=== PATIENT | female | born 1960 | race Caucasian/White ===

== ENCOUNTER 2016-08-19 08:02 | Emergency (ER) | payer OTHER ==
[~2016-08-19] VITALS: Ht 157.5 cm; Wt 86.4 kg
[~2016-08-19 08:02] MED LIST: ACIPHEX20 MG PO; ALEVE220 M2 PO; ALIGN4 MG PO; AMBIEN CR12.5 MG PO; AMBIEN10 M1 PO; AMBIEN10 MG PO; AMBIEN5 MG PO; AMITRIPTYLINE H10 MG PO; AMPICILLIN TRI500 MG PO; APRISO0.375 GM PO; APTIOM200 MG PO; ASPIR 8181 M1 PO; ASPIR 8181 MG PO; ASPIRIN E.C.81 M1 PO; ASPIRIN81 M1 PO; ASPIRIN81 M2 PO; ATARAX,VISTARIL25 MG PO; Ambien PO; BENTYL10 MG PO; BENTYL20 MG PO; BENZTROPINE MESY1 MG PO; BRINTELLIX10 MG PO; BUDEPRION SR150 MG PO; BUPROPION HCL150 M2 PO; BUPROPION XL300 MG PO; BUTALB-APAP-CA1 EACH PO; CARAFATE1 GM PO; CENTRUM COMPLE1 EACH PO; CIPRO500 MG PO; CIPROFLOXACIN500 M1; CLONAZEPAM0.5 M1 PO; CLONAZEPAM0.5 MG PO; COGENTIN1 MG PO; COLACE100 MG PO; DAILY VALUE1 EACH PO; DAILY VITAMIN1 EAC8 PO; DESYREL100 MG PO; DEXILANT60 MG PO; DICYCLOMINE HCL10 MG PO; DICYCLOMINE HCL20 MG PO; EFFEXOR XR150 MG PO; EFFEXOR XR37.5 MG PO; EFFEXOR XR75 MG PO; EFFEXOR37.5 MG; ESSENTIAL DAIL1 EACH PO; FEOSOL325 MG PO; FEROSUL325 MG PO; FIORICET,ESG1 TABLET PO; FLAGYL500 MG PO; FLEXERIL10 MG PO; Flexeril PO; GABAPENTIN300 MG PO; GLIPIZIDE ER2.5 MG PO; GLUCOPHAGE1000 MG PO; GLUCOPHAGE500 MG PO; GLUCOTROL XL2.5 MG PO; HYDROCHLOROTHIA25 MG PO; HYDROXYZINE HCL25 MG PO; HYDROXYZINE PAM25 MG PO; IMDUR30 MG PO; IMITREX100 MG; IMITREX100 MG PO; INVOKANA100 MG PO; IRON325 M1 PO; JANUVIA100 MG; Januvia PO; K-DUR20 MEQ PO; KEPPRA500 MG PO; KEPPRA750 MG PO; KLONOPIN0.5 M1 PO; KLONOPIN1 MG PO; KLOR-CON M1010 MEQ PO; KLOR-CON M2020 MEQ PO; KlonoPIN PO; Klonopin PO; L-LYSINE500 M1; LASIX20 MG PO; LEVOFLOXACIN750 MG PO; LIDOCAINE; LIDOCAINE700 MG TD; LIDODERM 5% P1 PATCH PO; LIDODERM 5% P1 PATCH TD; LISINOPRIL5 MG PO; LO-DOSE ASPIRIN81 M1 PO; LOPRESSOR HC1 TABLE2 PO; LOPRESSOR25 MG PO; LOPRESSOR50 MG PO; LORTAB 5-325 M1 EACH PO; LOW DOSE ASPIRI81 M1 PO; LYSINE,L-LYSIN500 MG PO; LYSINE500 MG PO; Lasix PO; MAXALT10 MG PO; MAXALT5 MG PO; MELOXICAM15 MG PO; MELOXICAM7.5 MG PO; METAXALONE800 MG PO; METFORMIN HCL1000 MG PO; METFORMIN HCL500 MG PO; METOPROLOL; METOPROLOL SUCC25 MG PO; METOPROLOL TART25 MG PO; METRONIDAZOLE500 MG PO; MIRAPEX0.5 MG PO; MIRTAZAPINE45 MG PO; MOBIC15 MG PO; MOBIC7.5 MG PO; MULTI COMPLETE1 EACH PO; NAPROSYN500 MG PO; NAPROXEN500 MG PO; NEOSPORIN ANT70.8 GM TP; NEXIUM20 MG PO; NORCO 5/3251 TABLET PO; Non-Formulary PO; OMEPRAZOLE DR; OMEPRAZOLE20 MG PO; PAROXETINE HCL30 MG PO; PAROXETINE HCL40 MG PO; PAXIL30 MG PO; PAXIL40 MG PO; PEPCID40 MG PO; PERCOCET 5/31 TABLET PO; PHENERGAN-CODE120 ML PO; POTASSIUM CHLO10 ME4 PO; POTASSIUM CHLO20 ME1 PO; PRAMIPEXOLE DI0.5 MG PO; PRILOSEC20 MG PO; PRILOSEC40 MG PO; PRISTIQ100 MG PO; PROAIR HFA8.5 GM IH; PROMETHAZINE HC25 M1 PO; PROTONIX40 MG PO; QUETIAPINE FUM300 MG PO; QUETIAPINE FUM400 MG PO; QUETIAPINE FUMA50 MG PO; RESTORIL15 MG PO; SAPHRIS10 MG SL; SEROPHENE50 MG PO; SEROQUEL XR200 MG PO; SEROQUEL XR300 MG PO; SEROQUEL XR400 MG PO; SEROQUEL100 MG PO; SEROQUEL12.5 MG PO; SEROQUEL200 MG PO; SEROQUEL300 MG PO; SEROQUEL50 MG PO; SEROquel PO; SKELAXIN800 MG PO; SUCRALFATE1 GM PO; SUMATRIPTAN SU100 MG PO; TEGretol PO; TOBRADEX EYE DRO5 ML BOTH EYES; TOPAMAX100 MG PO; TOPAMAX25 MG PO; TOPAMAX50 MG PO; TOPIRAMATE25 MG PO; TRAMADOL HCL50 MG PO; TRICOR145 MG PO; TRICOR48 MG PO; TRILAFON4 MG PO; TRILEPTAL600 MG PO; TYLENOL EXTRA500 MG PO; TYLENOL REGULA325 MG PO; TYLENOL WITH C1 EACH PO; ULTRAM50 MG; ULTRAM50 MG PO; VENLAFAXINE H37.5 M1 PO; VENLAFAXINE HC150 M1 PO; VICTOZA; VICTOZA 2-0.6 MG/0.1 SC; VIMOVO 500-201 EACH; VIMOVO 500-201 EACH PO; VITAMIN B-12 IM; VITAMIN B12-FO1 EACH PO; VITAMIN D32000 UNIT; VITAMIN D32400 UNIT/ MC; VIVELLE-DOT,0.025 MG PO; VOLTAREN 1% GE100 GM TP; Victoza SC; Vitamin B-12 PO; Vitamin D PO; WELLBUTRIN SR150 MG PO; WELLBUTRIN XL150 MG; WELLBUTRIN100 MG PO; WELLBUTRIN75 MG PO; Wellbutrin XL PO; XIFAXAN550 MG PO; ZANTAC150 MG PO; ZESTRIL,PRINIVIL5 MG PO; ZESTRIL5 MG PO; ZOCOR10 MG PO; ZOCOR20 MG PO; ZOFRAN ODT4 MG PO; ZOFRAN4 MG PO; ZOFRAN8 MG PO; ZOLPIDEM TARTRA10 MG PO; Zestril,Prinivil PO; [UNRECOGNIZED DRUG - CODE]; [UNRECOGNIZED DRUG - OTHER]; [UNRECOGNIZED DRUG - OTHER] PO
[2016-08-19 09:40] VITALS: BP 135/79
== END 2016-08-19 09:41 | disposition home or self-care (01) ==
LOC: EME 08:02
DX: S60.222A Contusion of left hand, initial encounter (principal); W22.09XA Striking against other stationary object, initial encounter
CPT/HCPCS: 73130; 99281; 99284

== ENCOUNTER 2016-09-11 23:20 | Emergency (ER) | payer OTHER ==
[~2016-09-11] VITALS: Ht 157.5 cm; Wt 85.0 kg
[2016-09-11 23:54] LABS: MCH 27.6 PG (29.0-34.0); MCHC 33.1 G/DL (30.0-36.0); MCV 83.3 FL (83-99); MEAN PLAT.VOLUME 8.9 uM^3 (9.5-12.4); PLATELET COUNT 394 K/uL (156-360); RBC DIS.WIDTH-CV 14.8 % (11.8-14.6); WHITE BLOOD COUNT 11.7 K/uL (4.1-10.2)
[2016-09-12 00:01] LABS: CHLORIDE 106 mEq/L (99-109); POTASSIUM 3.1 mEq/L (3.7-5.4); SODIUM 142 mEq/L (136-147)
[2016-09-12 00:03] LABS: GLUCOSE 169 mg/dL (70-99)
[2016-09-12 00:05] LABS: ANION GAP 11 MEQ/L (2-14); TOTAL BILIRUBIN 0.3 mg/dL (0.0-1.0)
[2016-09-12 00:07] LABS: ALKALINE PHOSPHATASE 131 IU/L (3-129); GFR ESTIMATE (CALCULATED) 45 mL/min/
[2016-09-12 00:08] LABS: UREA NITROGEN (BUN) 27 mg/dL (9-23)
[2016-09-12 00:08] LABS: ADD MIUA? NO; BILIRUBIN NEGATIVE; BLOOD NEGATIVE; COLOR YELLOW ((YELLOW)); GLUCOSE (STRIP) NEGATIVE; KETONES NEGATIVE; LEUKOCYTES NEGATIVE; NITRITE NEGATIVE; PROTEIN (STRIP) NEGATIVE; SPECIFIC GRAVITY 1.013 (1.000-1.030); UCUL ADDED? NO; UROBILINOGEN 0.2 MG/DL (0.2-1.0)
[2016-09-12 00:11] LABS: LIPASE 24 U/L (1.0-51.0)
[2016-09-12] MEDS ORDERED: PEPCID20 MG PO (02:29)
[2016-09-12 02:43] VITALS: BP 146/84
== END 2016-09-12 02:59 | disposition home or self-care (01) ==
LOC: EME 23:20
DX: R10.84 Generalized abdominal pain (principal); R51 Headache; K58.0 Irritable bowel syndrome with diarrhea; J45.909 Unspecified asthma, uncomplicated; E11.9 Type 2 diabetes mellitus without complications; E78.5 Hyperlipidemia, unspecified; I10 Essential (primary) hypertension; K21.9 Gastro-esophageal reflux disease without esophagitis; R56.9 Unspecified convulsions; Z79.82 Long term (current) use of aspirin; Z79.84 Long term (current) use of oral hypoglycemic drugs
CPT/HCPCS: 80053; 81003; 83690; 85027; 99281; 99285; J0500; J2405; J7030

== ENCOUNTER 2016-09-20 21:44 | Emergency (ER) | payer OTHER ==
[~2016-09-20] VITALS: Ht 157.5 cm; Wt 84.8 kg
[~2016-09-20 21:44] MED LIST changes: +PEPCID20 MG PO
[2016-09-20 22:24] LABS: HEMATOCRIT 35.4 % (36.0-46.0); MCH 27.4 PG (29.0-34.0); MCHC 32.5 G/DL (30.0-36.0); MCV 84.5 FL (83-99); MEAN PLAT.VOLUME 9.2 uM^3 (9.5-12.4); PLATELET COUNT 348 K/uL (156-360); RBC DIS.WIDTH-CV 14.4 % (11.8-14.6); RED BLOOD COUNT 4.19 M/uL (3.80-5.20); WHITE BLOOD COUNT 11.6 K/uL (4.1-10.2)
[2016-09-20 22:34] LABS: CHLORIDE 102 mEq/L (99-109); POTASSIUM 3.4 mEq/L (3.7-5.4); SODIUM 141 mEq/L (136-147)
[2016-09-20 22:35] LABS: GLUCOSE 169 mg/dL (70-99)
[2016-09-20 22:37] LABS: ANION GAP 9 MEQ/L (2-14)
[2016-09-20 22:39] LABS: GFR ESTIMATE (CALCULATED) 41 mL/min/
[2016-09-20 22:40] LABS: UREA NITROGEN (BUN) 32 mg/dL (9-23)
[2016-09-20 23:59] LABS: TROP-I INTERPRETATION NEGATIVE; TROPONIN-I 0.02 ng/mL (0.0-0.30)
[2016-09-21 00:04] LABS: INTER. NORMALIZED RATIO 1.1; PROTHROMBIN TIME 11.7 (9.2-11.2); PTT 28.2 (25-32)
[2016-09-21 00:24] LABS: HDL CHOLESTEROL 54 MG/DL (Desirable>=50); LDL CHOLESTEROL 76 mg/dL (Desirable<100); NON-HDL CHOLESTEROL 116 mg/dL (Desirable<160); TOTAL CHOLESTEROL 170 mg/dL (Desirable<200); TRIGLYCERIDES 200 MG/DL (Normal: <150)
[2016-09-21 01:01] VITALS: BP 115/61
== END 2016-09-21 01:42 | disposition home or self-care (01) ==
LOC: EME 21:44
DX: R47.9 Unspecified speech disturbances (principal); R20.0 Anesthesia of skin; R53.1 Weakness; E86.0 Dehydration; J45.909 Unspecified asthma, uncomplicated; E11.9 Type 2 diabetes mellitus without complications; E78.5 Hyperlipidemia, unspecified; I10 Essential (primary) hypertension; K21.9 Gastro-esophageal reflux disease without esophagitis
CPT/HCPCS: 70450; 71020; 80048; 80061; 84484; 85027; 85610; 85730; 93005; 99281; 99284

== ENCOUNTER 2016-09-30 01:53 | Inpatient (IN) | payer OTHER ==
[~2016-09-30] VITALS: Ht 160 cm; Wt 83.6 kg
[2016-09-30 02:24] LABS: HEMATOCRIT 37.5 % (36.0-46.0); MCH 26.9 PG (29.0-34.0); MCHC 33.3 G/DL (30.0-36.0); MCV 80.8 FL (83-99); PLATELET COUNT 350 K/uL (156-360); RBC DIS.WIDTH-CV 14.2 % (11.8-14.6); RBC DIS.WIDTH-SD 40.8 % (39-53); RED BLOOD COUNT 4.64 M/uL (3.80-5.20); WHITE BLOOD COUNT 10.6 K/uL (4.1-10.2)
[2016-09-30 02:33] LABS: CHLORIDE 102 mEq/L (99-109); POTASSIUM 2.6 mEq/L (3.7-5.4); SODIUM 144 mEq/L (136-147)
[2016-09-30 02:34] LABS: GLUCOSE 124 mg/dL (70-99)
[2016-09-30 02:36] LABS: ANION GAP 14 MEQ/L (2-14)
[2016-09-30 02:37] LABS: SERUM ETHYL ALCOHOL < 10 mg/dL
[2016-09-30 02:38] LABS: GFR ESTIMATE (CALCULATED) 41 mL/min/
[2016-09-30 02:40] LABS: UREA NITROGEN (BUN) 30 mg/dL (9-23)
[2016-09-30 02:41] LABS: SALICYLATE < 5.0 MG/DL (15-30)
[2016-09-30 03:33] LABS: AMPHETAMINE NEGATIVE (500 ng/mL); BARBITURATES NEGATIVE (200 ng/mL); BENZODIAZEPINES NEGATIVE (150 ng/mL); COCAINE NEGATIVE (150 ng/mL); INTERNAL CONTROLS VALID? YES; METHADONE NEGATIVE (200 ng/mL); METHAMPHETAMINE NEGATIVE (500 ng/mL); OPIATES (MORPHINE) NEGATIVE (100 ng/mL); OXYCODONE NEGATIVE (100 ng/mL); PHENCYCLIDINE NEGATIVE (25 ng/mL); PROPOXYPHENE NEGATIVE (300 ng/mL); THC CANNABINOIDS NEGATIVE (50 ng/mL); TRICYCLIC ANTIDEPRESSANTS PRESUMPTIVE POSITIVE (300 ng/mL)
[2016-09-30] MEDS ORDERED: SIMVASTATIN20 MG PO (05:14)
[2016-09-30] MEDS ORDERED: MIRAPEX0.5 MG PO (05:15)
[2016-09-30] MEDS ORDERED: LOPRESSOR50 MG PO (05:15)
[2016-09-30] MEDS ORDERED: AMBIEN10 MG PO (05:15)
[2016-09-30] MEDS ORDERED: KLOR-CON20 MEQ PO (05:16)
[2016-09-30] MEDS ORDERED: IRON325 MG PO (05:16)
[2016-09-30] MEDS ORDERED: GLUCOTROL XL2.5 MG PO (05:16)
[2016-09-30] MEDS ORDERED: GLIPIZIDE10 MG PO (05:21)
[2016-09-30] MEDS ORDERED: TOPAMAX100 MG PO (05:28)
[2016-09-30] MEDS ORDERED: EFFEXOR XR150 MG PO (05:28)
[2016-09-30] MEDS ORDERED: NEURONTIN300 MG PO (05:29)
[2016-09-30] MEDS ORDERED: TOPAMAX25 MG PO (05:29)
[2016-09-30] MEDS ORDERED: SEROQUEL50 MG PO (05:30)
[2016-09-30] MEDS ORDERED: SEROQUEL200 MG PO (05:30)
[2016-09-30] MEDS ORDERED: SEROQUEL XR400 MG PO (05:30)
[2016-09-30] MEDS ORDERED: CLONAZEPAM0.5 MG PO (05:31)
[2016-09-30] MEDS ORDERED: LIDOCAINE700 MG TD (09:00)
[2016-09-30] MEDS ORDERED: IMITREX100 MG PO (09:02)
[2016-09-30] MEDS ORDERED: LOPRESSOR HC1 TABLET PO (09:03)
[2016-09-30] MEDS ORDERED: TRAMADOL HCL50 MG PO (09:03)
[2016-09-30] MEDS ORDERED: LOPRESSOR HC1 TABLE2 PO (09:04)
[2016-09-30] MEDS ORDERED: PROTONIX40 MG PO (09:05)
[2016-09-30 15:30] VITALS: BP 133/72
[2016-10-01 06:06] LABS: POINT-OF-CARE METER ID UU13113830; POINT-OF-CARE USER ID BHSSMG
[2016-10-01 07:53] VITALS: BP 144/65
[2016-10-01 15:33] VITALS: BP 121/58
[2016-10-02 02:12] LABS: POINT-OF-CARE METER ID UU13113830; POINT-OF-CARE USER ID BHSSMG
[2016-10-02 02:14] LABS: HEMATOCRIT 35.6 % (36.0-46.0); MCH 27.3 PG (29.0-34.0); MCHC 33.1 G/DL (30.0-36.0); MCV 82.4 FL (83-99); MEAN PLAT.VOLUME 8.9 uM^3 (9.5-12.4); PLATELET COUNT 379 K/uL (156-360); RBC DIS.WIDTH-CV 14.2 % (11.8-14.6); RBC DIS.WIDTH-SD 41.7 % (39-53); RED BLOOD COUNT 4.32 M/uL (3.80-5.20); WHITE BLOOD COUNT 12.6 K/uL (4.1-10.2)
[2016-10-02 02:18] LABS: CHLORIDE 107 mEq/L (99-109); INTER. NORMALIZED RATIO 1.1; PROTHROMBIN TIME 11.3 (9.2-11.2); PTT 27.5 (25-32); SODIUM 144 mEq/L (136-147)
[2016-10-02 02:20] LABS: GLUCOSE 115 mg/dL (70-99); POTASSIUM 3.7 mEq/L (3.7-5.4)
[2016-10-02 02:21] LABS: ANION GAP 10 MEQ/L (2-14)
[2016-10-02 02:24] LABS: GFR ESTIMATE (CALCULATED) 55 mL/min/
[2016-10-02 02:25] LABS: UREA NITROGEN (BUN) 23 mg/dL (9-23)
[2016-10-02 02:27] LABS: TROP-I INTERPRETATION NEGATIVE; TROPONIN-I < 0.01 ng/mL (0.0-0.30)
== END 2016-10-02 03:07 | DRG 885 ==
LOC: EME → EDBD 01:53 → EDSEX 01:53 → EDOF 12:15 → 1WEST 12:15 → EDOF 12:40 → 1WEST 14:44
PROVIDERS: Emergency Medicine; Internal Medicine; Psychiatry & Neurology Psychiatry
DX: F25.1 Schizoaffective disorder, depressive type (principal); I63.9 Cerebral infarction, unspecified; I42.9 Cardiomyopathy, unspecified; I10 Essential (primary) hypertension; F60.3 Borderline personality disorder; E11.9 Type 2 diabetes mellitus without complications; K58.9 Irritable bowel syndrome, unspecified; K21.9 Gastro-esophageal reflux disease without esophagitis; G43.909 Migraine, unspecified, not intractable, without status migrainosus; F17.210 Nicotine dependence, cigarettes, uncomplicated; E66.3 Overweight; Z68.32 Body mass index [BMI] 32.0-32.9, adult; Z87.11 Personal history of peptic ulcer disease; Z88.6 Allergy status to analgesic agent; Z81.8 Family history of other mental and behavioral disorders
CPT/HCPCS: 70496; 70498; 80048; 82948; 84132; 84484; 85027; 85378; 85610; 85730; 90839; 93005; 97166 GO; 99281; 99285; G0480; J3480; J7030; Q0177

== ENCOUNTER 2016-10-02 02:40 | Inpatient (IN) | payer OTHER ==
[~2016-10-02] VITALS: Ht 157.5 cm; Wt 84.6 kg
[2016-10-02] VITALS (36 sets, daily range): BP systolic 115–143; BP diastolic 51–92
[~2016-10-02 02:40] MED LIST changes: +GLIPIZIDE10 MG PO; +IRON325 MG PO; +KLOR-CON20 MEQ PO; +LOPRESSOR HC1 TABLET PO; +NEURONTIN300 MG PO; +SIMVASTATIN20 MG PO
[2016-10-02 03:15] LABS: D-DIMER ELISA 1.19 mg/L FEU (< 0.57)
[2016-10-02 04:23] LABS: METH RESISTANT S AUREUS PCR NEGATIVE (NEGATIVE)
[2016-10-02 04:37] LABS: PROBE CHECK PASS; SPECIMEN PROCESSING CONTROL PASS
[2016-10-02 06:32] LABS: HEMATOCRIT 34.5 % (36.0-46.0); MCH 27.3 PG (29.0-34.0); MCHC 31.9 G/DL (30.0-36.0); MCV 85.6 FL (83-99); MEAN PLAT.VOLUME 9.1 uM^3 (9.5-12.4); PLATELET COUNT 300 K/uL (156-360); RBC DIS.WIDTH-CV 14.6 % (11.8-14.6); RBC DIS.WIDTH-SD 45.7 % (39-53); RED BLOOD COUNT 4.03 M/uL (3.80-5.20); WHITE BLOOD COUNT 13.3 K/uL (4.1-10.2)
[2016-10-02 06:40] LABS: INTER. NORMALIZED RATIO 1.4; PROTHROMBIN TIME 14.7 (9.2-11.2)
[2016-10-02 07:01] LABS: ANION GAP 10 MEQ/L (2-14); CHLORIDE 107 MEQ/L (99-109); GFR ESTIMATE (CALCULATED) > 59 mL/min/; GLUCOSE 109 mg/dL (70-99); MAGNESIUM 1.7 mg/dl (1.3-2.7); POTASSIUM 3.7 MEQ/L (3.7-5.4); SAMPLE HEMOLYSIS CHECK 0; SAMPLE ICTERIC CHECK 0; SAMPLE LIPEMIA CHECK 0; SODIUM 141 MEQ/L (136-147); UREA NITROGEN (BUN) 23 mg/dL (9-23)
[2016-10-02 07:17] LABS: HDL CHOLESTEROL 42 MG/DL (Desirable>=50); LDL CHOLESTEROL 71 mg/dL (Desirable<100); NON-HDL CHOLESTEROL 112 mg/dL (Desirable<160); TOTAL CHOLESTEROL 154 mg/dL (Desirable<200); TRIGLYCERIDES 205 MG/DL (Normal: <150)
[2016-10-02 07:53] LABS: Estimated Average Glucose 148 mg/dL (70-123); HEMOGLOBIN A1c (GLYCOHEMOGLOB) 6.8 % HGB (Below 5.7)
[2016-10-02 12:06] LABS: POINT-OF-CARE METER ID UU13113731; POINT-OF-CARE USER ID 606021424
[2016-10-02 17:39] LABS: POINT-OF-CARE METER ID UU13113731
[2016-10-03] VITALS (12 sets, daily range): BP systolic 0–149; BP diastolic 0–77
[2016-10-03 00:19] LABS: POINT-OF-CARE METER ID UU13113731
[2016-10-03 05:28] LABS: POINT-OF-CARE METER ID UU13113803
[2016-10-03 11:45] LABS: POINT-OF-CARE METER ID UU13113803
== END 2016-10-03 18:31 | DRG 66 ==
LOC: 4WEST 03:02
PROVIDERS: Internal Medicine; Surgery
DX: I63.9 Cerebral infarction, unspecified (principal); F25.9 Schizoaffective disorder, unspecified; F60.3 Borderline personality disorder; E83.42 Hypomagnesemia; G43.909 Migraine, unspecified, not intractable, without status migrainosus; Z91.5 Personal history of self-harm; I10 Essential (primary) hypertension; E11.9 Type 2 diabetes mellitus without complications; K58.9 Irritable bowel syndrome, unspecified; K21.9 Gastro-esophageal reflux disease without esophagitis; K27.9 Peptic ulcer, site unspecified, unspecified as acute or chronic, without hemorrhage or perforation; Z79.84 Long term (current) use of oral hypoglycemic drugs
CPT/HCPCS: 70450; 80048 91; 80061; 82948; 83036; 83735; 84100; 85027; 85379; 85610; 85730; 87641; 92526 GN; 92610 GN; 93005; J1200; J1815; J1885; J2765; J2997; J3475; J7030

== ENCOUNTER 2016-10-03 18:06 | Inpatient (IN) | payer OTHER ==
[~2016-10-03] VITALS: Ht 157.5 cm; Wt 83.0 kg
[2016-10-03 21:27] VITALS: BP 148/89
[2016-10-04 08:11] VITALS: BP 141/65
[2016-10-04 15:06] VITALS: BP 135/61
[2016-10-05 07:41] VITALS: BP 143/69
[2016-10-05 15:47] VITALS: BP 144/65
[2016-10-06 08:06] VITALS: BP 161/84
== END 2016-10-06 12:43 | disposition home or self-care (01) | DRG 885 ==
LOC: 1WEST 18:06
DX: F25.0 Schizoaffective disorder, bipolar type (principal); F60.3 Borderline personality disorder; Z86.73 Personal history of transient ischemic attack (TIA), and cerebral infarction without residual deficits; I10 Essential (primary) hypertension; E11.9 Type 2 diabetes mellitus without complications; K58.9 Irritable bowel syndrome, unspecified; K21.9 Gastro-esophageal reflux disease without esophagitis; G43.909 Migraine, unspecified, not intractable, without status migrainosus; E66.9 Obesity, unspecified; Z68.34 Body mass index [BMI] 34.0-34.9, adult; Z91.5 Personal history of self-harm; Z56.0 Unemployment, unspecified; Z87.11 Personal history of peptic ulcer disease
CPT/HCPCS: 97150 GO; 97165 GO

== ENCOUNTER 2016-11-14 05:19 | Emergency (ER) | payer OTHER ==
[~2016-11-14] VITALS: Ht 157.5 cm; Wt 86.2 kg
[2016-11-14 06:43] LABS: HEMATOCRIT 36.8 % (36.0-46.0); MCH 27.4 PG (29.0-34.0); MCHC 32.1 G/DL (30.0-36.0); MCV 85.4 FL (83-99); MEAN PLAT.VOLUME 9.5 uM^3 (9.5-12.4); PLATELET COUNT 336 K/uL (156-360); RBC DIS.WIDTH-SD 43.4 % (39-53); RED BLOOD COUNT 4.31 M/uL (3.80-5.20); WHITE BLOOD COUNT 11.4 K/uL (4.1-10.2)
[2016-11-14 07:13] VITALS: BP 130/86
[2016-11-14 07:17] LABS: ANION GAP 13 MEQ/L (2-14); CHLORIDE 101 MEQ/L (99-109); GFR ESTIMATE (CALCULATED) 55 mL/min/; GLUCOSE 155 mg/dL (70-99); POTASSIUM 3.4 MEQ/L (3.7-5.4); SAMPLE HEMOLYSIS CHECK 0; SAMPLE ICTERIC CHECK 0; SAMPLE LIPEMIA CHECK 0; SODIUM 142 MEQ/L (136-147); UREA NITROGEN (BUN) 24 mg/dL (9-23)
[2016-11-14 07:18] LABS: TROP-I INTERPRETATION NEGATIVE; TROPONIN-I < 0.01 ng/mL (0.0-0.30)
== END 2016-11-14 07:36 | disposition home or self-care (01) ==
LOC: EME 05:19
DX: G43.909 Migraine, unspecified, not intractable, without status migrainosus (principal); R20.2 Paresthesia of skin; R07.9 Chest pain, unspecified; E11.9 Type 2 diabetes mellitus without complications; E78.5 Hyperlipidemia, unspecified; I10 Essential (primary) hypertension; K21.9 Gastro-esophageal reflux disease without esophagitis; Z86.73 Personal history of transient ischemic attack (TIA), and cerebral infarction without residual deficits; Z88.6 Allergy status to analgesic agent
CPT/HCPCS: 71020; 80048; 84484; 85027; 93005; 99281; 99285; J1630

== ENCOUNTER 2016-11-20 15:07 | Emergency (ER) | payer OTHER ==
[~2016-11-20] VITALS: Ht 157.5 cm; Wt 56.7 kg
[2016-11-20 17:00] LABS: HEMATOCRIT 36.1 % (36.0-46.0); MCH 27.4 PG (29.0-34.0); MCHC 32.1 G/DL (30.0-36.0); MCV 85.3 FL (83-99); MEAN PLAT.VOLUME 9.2 uM^3 (9.5-12.4); PLATELET COUNT 345 K/uL (156-360); RBC DIS.WIDTH-CV 14.4 % (11.8-14.6); RBC DIS.WIDTH-SD 44.1 % (39-53); RED BLOOD COUNT 4.23 M/uL (3.80-5.20); WHITE BLOOD COUNT 12.8 K/uL (4.1-10.2)
[2016-11-20 17:09] LABS: CHLORIDE 102 mEq/L (99-109); POTASSIUM 3.3 mEq/L (3.7-5.4); SODIUM 143 mEq/L (136-147)
[2016-11-20 17:11] LABS: GLUCOSE 105 mg/dL (70-99)
[2016-11-20 17:12] LABS: ANION GAP 12 MEQ/L (2-14)
[2016-11-20 17:14] LABS: SERUM ETHYL ALCOHOL < 10 mg/dL
[2016-11-20 17:15] LABS: GFR ESTIMATE (CALCULATED) > 59 mL/min/
[2016-11-20 17:16] LABS: UREA NITROGEN (BUN) 17 mg/dL (9-23)
[2016-11-20 17:27] LABS: AMPHETAMINE NEGATIVE (500 ng/mL); BARBITURATES NEGATIVE (200 ng/mL); BENZODIAZEPINES NEGATIVE (150 ng/mL); COCAINE NEGATIVE (150 ng/mL); INTERNAL CONTROLS VALID? YES; METHADONE NEGATIVE (200 ng/mL); METHAMPHETAMINE NEGATIVE (500 ng/mL); OPIATES (MORPHINE) NEGATIVE (100 ng/mL); OXYCODONE NEGATIVE (100 ng/mL); PHENCYCLIDINE NEGATIVE (25 ng/mL); PROPOXYPHENE NEGATIVE (300 ng/mL); THC CANNABINOIDS NEGATIVE (50 ng/mL); TRICYCLIC ANTIDEPRESSANTS PRESUMPTIVE POSITIVE (300 ng/mL)
[2016-11-21] MEDS ORDERED: LOPRESSOR HC1 TABLE2 PO (07:37)
[2016-11-21] MEDS ORDERED: SEROQUEL300 MG PO (07:39)
[2016-11-21] MEDS ORDERED: K-DUR20 MEQ PO (07:41)
[2016-11-21] MEDS ORDERED: GLIPIZIDE5 MG PO (07:42)
[2016-11-21] MEDS ORDERED: PLAVIX75 MG PO (07:43)
[2016-11-21 09:32] LABS: POINT-OF-CARE METER ID UU13113702
[2016-11-21 17:19] VITALS: BP 134/87
== END 2016-11-21 17:23 ==
LOC: EME 15:07
PROVIDERS: Emergency Medicine
DX: F32.9 Major depressive disorder, single episode, unspecified (principal); R45.851 Suicidal ideations; E87.6 Hypokalemia; F25.0 Schizoaffective disorder, bipolar type; F60.3 Borderline personality disorder; J45.909 Unspecified asthma, uncomplicated; E11.9 Type 2 diabetes mellitus without complications; E78.5 Hyperlipidemia, unspecified; I10 Essential (primary) hypertension; K21.9 Gastro-esophageal reflux disease without esophagitis; R56.9 Unspecified convulsions; Z86.73 Personal history of transient ischemic attack (TIA), and cerebral infarction without residual deficits; Z91.5 Personal history of self-harm; Z79.84 Long term (current) use of oral hypoglycemic drugs
CPT/HCPCS: 80048; 82948; 85027; 90837; 99281; 99285; G0480; J1630; J2060

== ENCOUNTER 2016-12-10 00:35 | Emergency (ER) | payer OTHER ==
[~2016-12-10] VITALS: Ht 157.5 cm; Wt 88.1 kg
[~2016-12-10 00:35] MED LIST changes: +GLIPIZIDE5 MG PO; +PLAVIX75 MG PO
[2016-12-10 02:30] VITALS: BP 147/81
== END 2016-12-10 02:31 | disposition home or self-care (01) ==
LOC: EXP 00:35 → EME 00:35 → EXP 02:31
DX: S62.91XD Unspecified fracture of right hand, subsequent encounter for fracture with routine healing (principal)
CPT/HCPCS: 99281; 99283

== ENCOUNTER 2017-01-15 12:46 | Emergency (ER) | payer OTHER ==
[~2017-01-15] VITALS: Ht 157.5 cm; Wt 85.1 kg
[2017-01-15 13:58] LABS: BASOPHIL COUNT 0.1 K/uL (0-0.1); EOSINOPHIL (%) 1.4 % (0-5); EOSINOPHIL COUNT 0.2 K/uL (0-0.3); HEMATOCRIT 35.9 % (36.0-46.0); IMMATURE GRANULOCYTE (%) 0.8 % (0.0-0.7); IMMATURE GRANULOCYTE COUNT 0.1 K/uL; INSTRUMENT ABS NEUTROPHIL CT 10.3 K/uL; LYMPHOCYTE COUNT 3.6 K/uL (1.0-2.8); MCH 27.5 PG (29.0-34.0); MCHC 33.1 G/DL (30.0-36.0); MCV 83.1 FL (83-99); MEAN PLAT.VOLUME 9.3 uM^3 (9.5-12.4); MONOCYTE (%) 5.5 % (3-12); MONOCYTE COUNT 0.8 K/uL (0-0.8); NEUTROPHIL (%) 68.2 % (45-76); NEUTROPHIL COUNT 10.3 K/uL (1.8-6.4); PLATELET COUNT 372 K/uL (156-360); RBC DIS.WIDTH-CV 14.4 % (11.8-14.6); RBC DIS.WIDTH-SD 43.5 % (39-53); RED BLOOD COUNT 4.32 M/uL (3.80-5.20); WHITE BLOOD COUNT 15.2 K/uL (4.1-10.2)
[2017-01-15 14:06] LABS: CHLORIDE 100 mEq/L (99-109); SODIUM 140 mEq/L (136-147)
[2017-01-15 14:09] LABS: GLUCOSE 83 mg/dL (70-99)
[2017-01-15 14:10] LABS: ANION GAP 9 MEQ/L (2-14)
[2017-01-15 14:11] LABS: TOTAL BILIRUBIN 0.4 mg/dL (0.0-1.0)
[2017-01-15 14:12] LABS: ALKALINE PHOSPHATASE 104 IU/L (3-129); GFR ESTIMATE (CALCULATED) 55 mL/min/
[2017-01-15 14:13] LABS: UREA NITROGEN (BUN) 32 mg/dL (9-23)
[2017-01-15 14:16] LABS: LIPASE 14 U/L (1.0-51.0)
[2017-01-15 15:38] LABS: ADD MIUA? NO; BILIRUBIN NEGATIVE; BLOOD NEGATIVE; COLOR YELLOW ((YELLOW)); GLUCOSE (STRIP) NEGATIVE; KETONES NEGATIVE; LEUKOCYTES NEGATIVE; NITRITE NEGATIVE; PROTEIN (STRIP) NEGATIVE; SPECIFIC GRAVITY 1.017 (1.000-1.030); UCUL ADDED? NO; UROBILINOGEN 0.2 MG/DL (0.2-1.0)
[2017-01-15] MEDS ORDERED: ZOFRAN ODT4 MG PO (16:28)
[2017-01-15] MEDS ORDERED: DONNATAL1 TABLET PO (16:28)
[2017-01-15 17:20] VITALS: BP 139/79
== END 2017-01-15 17:22 | disposition home or self-care (01) ==
LOC: EME 12:46
PROVIDERS: Emergency Medicine
DX: R10.9 Unspecified abdominal pain (principal); R19.7 Diarrhea, unspecified; R11.2 Nausea with vomiting, unspecified; R07.9 Chest pain, unspecified; R51 Headache; Z90.49 Acquired absence of other specified parts of digestive tract
CPT/HCPCS: 80053; 81003; 83690; 85025; 93005; 99281; 99285; J2405; J7030

== ENCOUNTER 2017-03-09 00:20 | Emergency (ER) | payer OTHER ==
[~2017-03-09] VITALS: Ht 157.5 cm; Wt 86.1 kg
[~2017-03-09 00:20] MED LIST changes: +DONNATAL1 TABLET PO
[2017-03-09 01:00] VITALS: BP 149/81
== END 2017-03-09 01:00 | disposition home or self-care (01) ==
LOC: EME 00:20
DX: T42.0X1A Poisoning by hydantoin derivatives, accidental (unintentional), initial encounter (principal); F41.9 Anxiety disorder, unspecified; E11.9 Type 2 diabetes mellitus without complications; K21.9 Gastro-esophageal reflux disease without esophagitis; J45.909 Unspecified asthma, uncomplicated; I10 Essential (primary) hypertension; E78.5 Hyperlipidemia, unspecified; K58.9 Irritable bowel syndrome, unspecified; Z86.73 Personal history of transient ischemic attack (TIA), and cerebral infarction without residual deficits; Z90.710 Acquired absence of both cervix and uterus
CPT/HCPCS: 99281; 99284

== ENCOUNTER 2017-04-08 20:30 | Emergency (ER) | payer OTHER ==
[~2017-04-08] VITALS: Ht 157.5 cm; Wt 85.6 kg
[2017-04-08 21:39] LABS: HEMATOCRIT 33.7 % (36.0-46.0); MCH 28.6 PG (29.0-34.0); MCHC 33.2 G/DL (30.0-36.0); MEAN PLAT.VOLUME 8.8 uM^3 (9.5-12.4); PLATELET COUNT 336 K/uL (156-360); RBC DIS.WIDTH-CV 13.7 % (11.8-14.6); RBC DIS.WIDTH-SD 42.5 % (39-53); RED BLOOD COUNT 3.92 M/uL (3.80-5.20); WHITE BLOOD COUNT 9.4 K/uL (4.1-10.2)
[2017-04-08 21:51] LABS: CHLORIDE 103 mEq/L (99-109); SODIUM 143 mEq/L (136-147)
[2017-04-08 21:53] LABS: GLUCOSE 138 mg/dL (70-99)
[2017-04-08 21:54] LABS: ANION GAP 13 MEQ/L (2-14)
[2017-04-08 21:56] LABS: GFR ESTIMATE (CALCULATED) 45 mL/min/
[2017-04-08 21:57] LABS: UREA NITROGEN (BUN) 19 mg/dL (9-23)
[2017-04-08 22:00] LABS: TROP-I INTERPRETATION NEGATIVE; TROPONIN-I < 0.01 ng/mL (0.0-0.30)
[2017-04-09 00:03] LABS: TROP-I INTERPRETATION NEGATIVE; TROPONIN-I < 0.01 ng/mL (0.0-0.30)
[2017-04-09 00:24] VITALS: BP 148/76
== END 2017-04-09 00:25 | disposition home or self-care (01) ==
LOC: EME 20:30 → RME 20:30
PROVIDERS: Emergency Medicine; Physician Assistant Medical
DX: R07.89 Other chest pain (principal); R51 Headache; E78.5 Hyperlipidemia, unspecified; I10 Essential (primary) hypertension; E11.9 Type 2 diabetes mellitus without complications; Z79.01 Long term (current) use of anticoagulants; Z86.73 Personal history of transient ischemic attack (TIA), and cerebral infarction without residual deficits; R56.9 Unspecified convulsions
CPT/HCPCS: 70450; 71020; 80048; 84484; 85027; 93005; 99281; 99285

== ENCOUNTER 2017-04-20 12:10 | Emergency (ER) | payer OTHER ==
[~2017-04-20] VITALS: Ht 157.5 cm; Wt 86.3 kg
[2017-04-20 13:45] LABS: HEMATOCRIT 36.3 % (36.0-46.0); MCH 28.6 PG (29.0-34.0); MCHC 33.1 G/DL (30.0-36.0); MCV 86.4 FL (83-99); MEAN PLAT.VOLUME 8.6 uM^3 (9.5-12.4); PLATELET COUNT 345 K/uL (156-360); RBC DIS.WIDTH-CV 13.4 % (11.8-14.6); RBC DIS.WIDTH-SD 41.9 % (39-53); WHITE BLOOD COUNT 10.9 K/uL (4.1-10.2)
[2017-04-20 13:53] LABS: CHLORIDE 103 mEq/L (99-109); POTASSIUM 3.3 mEq/L (3.7-5.4); SODIUM 143 mEq/L (136-147)
[2017-04-20 13:55] LABS: GLUCOSE 78 mg/dL (70-99)
[2017-04-20 13:56] LABS: ANION GAP 13 MEQ/L (2-14)
[2017-04-20 13:59] LABS: GFR ESTIMATE (CALCULATED) 49 mL/min/
[2017-04-20 14:00] LABS: UREA NITROGEN (BUN) 19 mg/dL (9-23)
[2017-04-20] MEDS ORDERED: PROAIR HFA8.5 GM IH (16:30)
[2017-04-20] MEDS ORDERED: PREDNISONE50 MG PO (16:30)
[2017-04-20 16:52] VITALS: BP 118/82
== END 2017-04-20 17:13 | disposition home or self-care (01) ==
LOC: EME 12:10
DX: J44.9 Chronic obstructive pulmonary disease, unspecified (principal); K21.9 Gastro-esophageal reflux disease without esophagitis; I10 Essential (primary) hypertension; E78.5 Hyperlipidemia, unspecified; E11.9 Type 2 diabetes mellitus without complications; F20.9 Schizophrenia, unspecified; Z86.73 Personal history of transient ischemic attack (TIA), and cerebral infarction without residual deficits
CPT/HCPCS: 71020; 80048; 85027; 93005; 94640; 99281; 99284; J7512

== ENCOUNTER 2017-05-05 02:22 | Observation (INO) | payer OTHER ==
[~2017-05-05] VITALS: Ht 157.5 cm; Wt 82.7 kg
[~2017-05-05 02:22] MED LIST changes: +PREDNISONE50 MG PO
[2017-05-05 03:41] LABS: BASOPHIL COUNT 0.1 K/uL (0-0.1); EOSINOPHIL (%) 4.2 % (0-5); EOSINOPHIL COUNT 0.4 K/uL (0-0.3); HEMATOCRIT 32.9 % (36.0-46.0); IMMATURE GRANULOCYTE (%) 0.7 % (0.0-0.7); IMMATURE GRANULOCYTE COUNT 0.1 K/uL; INSTRUMENT ABS NEUTROPHIL CT 4.7 K/uL; LYMPHOCYTE COUNT 3.2 K/uL (1.0-2.8); MCH 28.3 PG (29.0-34.0); MCHC 32.2 G/DL (30.0-36.0); MEAN PLAT.VOLUME 9.1 uM^3 (9.5-12.4); MONOCYTE (%) 6.2 % (3-12); MONOCYTE COUNT 0.6 K/uL (0-0.8); NEUTROPHIL (%) 52.8 % (45-76); NEUTROPHIL COUNT 4.7 K/uL (1.8-6.4); PLATELET COUNT 260 K/uL (156-360); RBC DIS.WIDTH-CV 13.7 % (11.8-14.6); RBC DIS.WIDTH-SD 43.9 % (39-53); RED BLOOD COUNT 3.74 M/uL (3.80-5.20)
[2017-05-05 03:47] LABS: INTER. NORMALIZED RATIO 1.1; PROTHROMBIN TIME 12.4 SEC (10.2-12.9)
[2017-05-05 03:49] LABS: CHLORIDE 107 mEq/L (99-109); POTASSIUM 3.7 mEq/L (3.7-5.4); PTT 28.5 SEC (25-37); SODIUM 144 mEq/L (136-147)
[2017-05-05 03:51] LABS: GLUCOSE 137 mg/dL (70-99)
[2017-05-05 03:52] LABS: ANION GAP 11 MEQ/L (2-14)
[2017-05-05 03:55] LABS: GFR ESTIMATE (CALCULATED) > 59 mL/min/
[2017-05-05 03:56] LABS: UREA NITROGEN (BUN) 19 mg/dL (9-23)
[2017-05-05 04:02] LABS: TROP-I INTERPRETATION NEGATIVE; TROPONIN-I 0.01 ng/mL (0.0-0.30)
[2017-05-05 04:37] LABS: HDL CHOLESTEROL 42 MG/DL (Desirable>=50); NON-HDL CHOLESTEROL 95 mg/dL (Desirable<160); TOTAL CHOLESTEROL 137 mg/dL (Desirable<200); TRIGLYCERIDES 443 MG/DL (Normal: <150)
[2017-05-05] MEDS ORDERED: LOPRESSOR50 MG PO (10:04)
[2017-05-05] MEDS ORDERED: GLUCOPHAGE500 MG PO (10:04)
[2017-05-05] MEDS ORDERED: IRON325 M1 PO (10:05)
[2017-05-05] MEDS ORDERED: TOPAMAX25 MG PO (10:05)
[2017-05-05] MEDS ORDERED: PLAVIX75 MG PO (10:06)
[2017-05-05] MEDS ORDERED: ZOCOR20 MG PO (10:06)
[2017-05-05] MEDS ORDERED: GLUCOTROL XL2.5 MG PO (10:06)
[2017-05-05] MEDS ORDERED: EFFEXOR XR150 MG PO (10:06)
[2017-05-05] MEDS ORDERED: EFFEXOR XR75 MG PO (10:07)
[2017-05-05] MEDS ORDERED: LIDODERM 5% P1 PATCH TD (10:07)
[2017-05-05] MEDS ORDERED: MIRALAX17 GM PO (10:07)
[2017-05-05] MEDS ORDERED: SENNA S TABLET1 EACH PO (10:08)
[2017-05-05] MEDS ORDERED: K-DUR20 MEQ PO (10:08)
[2017-05-05] MEDS ORDERED: BENTYL20 MG PO (10:09)
[2017-05-05] MEDS ORDERED: ZYPREXA5 MG PO (10:09)
[2017-05-05] MEDS ORDERED: IMITREX100 MG PO (10:10)
[2017-05-05] MEDS ORDERED: SEROQUEL100 MG PO (10:10)
[2017-05-05] MEDS ORDERED: MOBIC15 MG PO (10:11)
[2017-05-05] MEDS ORDERED: REMERON15 M2 PO (10:11)
[2017-05-05] MEDS ORDERED: MIRAPEX0.5 MG PO (10:11)
[2017-05-05] MEDS ORDERED: TYLENOL REGULA325 MG PO (10:12)
[2017-05-05] MEDS ORDERED: ATIVAN1 MG PO (10:13)
[2017-05-05 11:14] VITALS: BP 131/67
[2017-05-05] MEDS ORDERED: PANTOPRAZOLE SO40 MG PO (11:14)
[2017-05-05] MEDS ORDERED: SEROQUEL XR200 MG PO (11:16)
[2017-05-05] MEDS ORDERED: QUETIAPINE FUM400 MG PO (11:17)
[2017-05-05 13:38] LABS: POINT-OF-CARE METER ID UU13113831
[2017-05-05 16:00] VITALS: BP 140/68
[2017-05-05 17:08] LABS: POINT-OF-CARE METER ID UU13113831
[2017-05-06 00:53] VITALS: BP 148/70
[2017-05-06 03:58] VITALS: BP 126/60
[2017-05-06 05:47] LABS: HEMATOCRIT 31.3 % (36.0-46.0); MCH 29.1 PG (29.0-34.0); MCHC 32.6 G/DL (30.0-36.0); MCV 89.2 FL (83-99); MEAN PLAT.VOLUME 9.4 uM^3 (9.5-12.4); PLATELET COUNT 247 K/uL (156-360); RBC DIS.WIDTH-CV 14.2 % (11.8-14.6); RBC DIS.WIDTH-SD 45.4 % (39-53); RED BLOOD COUNT 3.51 M/uL (3.80-5.20); WHITE BLOOD COUNT 8.5 K/uL (4.1-10.2)
[2017-05-06 06:09] LABS: ALKALINE PHOSPHATASE 70 IU/L (3-129); ANION GAP 9 MEQ/L (2-14); CHLORIDE 107 MEQ/L (99-109); GFR ESTIMATE (CALCULATED) 55 mL/min/; GLUCOSE 158 mg/dL (70-99); POTASSIUM 4.1 MEQ/L (3.7-5.4); SAMPLE HEMOLYSIS CHECK 0; SAMPLE ICTERIC CHECK 0; SAMPLE LIPEMIA CHECK 0; SODIUM 142 MEQ/L (136-147); TOTAL BILIRUBIN 0.3 MG/DL (0.0-1.0); UREA NITROGEN (BUN) 21 mg/dL (9-23)
[2017-05-06 07:57] VITALS: BP 128/60
[2017-05-06 11:44] VITALS: BP 142/75
[2017-05-06 12:55] LABS: POINT-OF-CARE METER ID UU14162513
== END 2017-05-06 17:18 ==
LOC: EME 02:22 → EDOF 09:25 → 5WEST 09:25 → ENRESERV 09:34 → CANRESERV 09:34 → ENRESERV 09:39 → CANRESERV 09:55 → ENRESERV 09:57 → 5WEST 10:52
PROVIDERS: Emergency Medicine; Internal Medicine
DX: R55 Syncope and collapse (principal); M62.81 Muscle weakness (generalized); F60.3 Borderline personality disorder; F41.9 Anxiety disorder, unspecified; R20.0 Anesthesia of skin; Z91.14 Patient's other noncompliance with medication regimen; G43.109 Migraine with aura, not intractable, without status migrainosus; F25.9 Schizoaffective disorder, unspecified; F31.9 Bipolar disorder, unspecified; K21.9 Gastro-esophageal reflux disease without esophagitis; E11.9 Type 2 diabetes mellitus without complications; I10 Essential (primary) hypertension; E78.5 Hyperlipidemia, unspecified; R45.851 Suicidal ideations; G25.81 Restless legs syndrome; K58.9 Irritable bowel syndrome, unspecified; G89.29 Other chronic pain; Z79.84 Long term (current) use of oral hypoglycemic drugs; Z82.49 Family history of ischemic heart disease and other diseases of the circulatory system; Z87.11 Personal history of peptic ulcer disease
CPT/HCPCS: 70450; 70551; 71020; 80048; 80053; 80061; 82948; 84484; 85025; 85027; 85610; 85730; 92610 GN; 93005; 99202; 99281; 99284; G0378; G8996 GN CH; G8997 GN CH; G8998 GN CH; J1200; J1650; J2765

== ENCOUNTER 2017-08-27 21:17 | Inpatient (IN) | payer OTHER ==
[~2017-08-27] VITALS: Ht 157.5 cm; Wt 82.3 kg
[~2017-08-27 21:17] MED LIST changes: +ATIVAN1 MG PO; +MIRALAX17 GM PO; +PANTOPRAZOLE SO40 MG PO; +REMERON15 M2 PO; +SENNA S TABLET1 EACH PO; +ZITHROMAX Z-PA250 MG PO; +ZYPREXA5 MG PO
[2017-08-27 21:30] LABS: HEMATOCRIT 34.6 % (36.0-46.0); HEMOGLOBIN 11.6 G/DL (11.9-15.5); MCH 27.8 PG (29.0-34.0); MCHC 33.5 G/DL (30.0-36.0); PLATELET COUNT 376 K/uL (156-360); RBC DIS.WIDTH-CV 13.1 % (11.8-14.6); RBC DIS.WIDTH-SD 39.4 % (39-53); RED BLOOD COUNT 4.17 M/uL (3.80-5.20); WHITE BLOOD COUNT 13.8 K/uL (4.1-10.2)
[2017-08-27 21:43] LABS: CHLORIDE 100 mEq/L (99-109); SODIUM 141 mEq/L (136-147)
[2017-08-27 21:45] LABS: GLUCOSE 141 mg/dL (70-99)
[2017-08-27 21:48] LABS: SERUM ETHYL ALCOHOL < 10 mg/dL
[2017-08-27 21:49] LABS: GFR ESTIMATE (CALCULATED) > 59 mL/min/
[2017-08-27 21:50] LABS: UREA NITROGEN (BUN) 18 mg/dL (9-23)
[2017-08-27 22:12] LABS: COCAINE NEGATIVE (150 ng/mL); PHENCYCLIDINE NEGATIVE (25 ng/mL); THC CANNABINOIDS NEGATIVE (50 ng/mL)
[2017-08-27 22:13] LABS: AMPHETAMINE NEGATIVE (500 ng/mL); BARBITURATES PRESUMPTIVE POSITIVE (200 ng/mL); BENZODIAZEPINES PRESUMPTIVE POSITIVE (150 ng/mL); BUPRENORPHINE NEGATIVE (10 ng/mL); METHADONE NEGATIVE (200 ng/mL); METHAMPHETAMINE NEGATIVE (500 ng/mL); OPIATES (MORPHINE) NEGATIVE (100 ng/mL); OXYCODONE NEGATIVE (100 ng/mL); PROPOXYPHENE NEGATIVE (300 ng/mL); TRICYCLIC ANTIDEPRESSANTS PRESUMPTIVE POSITIVE (300 ng/mL)
[2017-08-27 22:35] LABS: BENZODIAZEPINES, URINE SCREEN POSITIVE (200 ng/mL)
[2017-08-28 05:40] VITALS: BP 126/70
[2017-08-28 07:45] VITALS: BP 123/71
[2017-08-28] MEDS ORDERED: SEROQUEL100 MG PO (08:37)
[2017-08-28] MEDS ORDERED: SEROQUEL300 MG PO ×2 (08:37→08:38)
[2017-08-28 15:15] VITALS: BP 136/58
[2017-08-29 07:46] VITALS: BP 122/67
== END 2017-08-29 10:35 | disposition home or self-care (01) | DRG 885 ==
LOC: EME 21:17 → 1WEST 08-28 00:37 → EDOF 08-28 00:37 → 1WEST 08-28 00:37 → ENRESERV 08-28 04:59 → 1WEST 08-28 05:13
PROVIDERS: Emergency Medicine Emergency Medical Services; Psychiatry & Neurology Psychiatry
DX: F25.0 Schizoaffective disorder, bipolar type (principal); F60.3 Borderline personality disorder; R45.851 Suicidal ideations; I10 Essential (primary) hypertension; E78.5 Hyperlipidemia, unspecified; E11.9 Type 2 diabetes mellitus without complications; K21.9 Gastro-esophageal reflux disease without esophagitis; D64.9 Anemia, unspecified; F41.9 Anxiety disorder, unspecified; G43.909 Migraine, unspecified, not intractable, without status migrainosus; Z91.5 Personal history of self-harm; Z79.84 Long term (current) use of oral hypoglycemic drugs; Z79.02 Long term (current) use of antithrombotics/antiplatelets; Z87.11 Personal history of peptic ulcer disease; Z86.73 Personal history of transient ischemic attack (TIA), and cerebral infarction without residual deficits
CPT/HCPCS: 80048; 82948; 84999; 85027; 90837; 99281; 99285; G0480; J1630; Q0177

== ENCOUNTER 2017-12-30 12:51 | Inpatient (IN) | payer OTHER ==
[~2017-12-30] VITALS: Ht 157.5 cm; Wt 79.7 kg
[2017-12-30 13:26] LABS: HEMATOCRIT 28.9 % (36.0-46.0); HEMOGLOBIN 9.8 G/DL (11.9-15.5); MCH 27.8 PG (29.0-34.0); MCHC 33.9 G/DL (30.0-36.0); MCV 81.9 FL (83-99); PLATELET COUNT 346 K/uL (156-360); RBC DIS.WIDTH-CV 14.6 % (11.8-14.6); RBC DIS.WIDTH-SD 42.7 % (39-53); RED BLOOD COUNT 3.53 M/uL (3.80-5.20); WHITE BLOOD COUNT 10.1 K/uL (4.1-10.2)
[2017-12-30 13:35] LABS: CHLORIDE 98 mEq/L (99-109); POTASSIUM 2.9 mEq/L (3.7-5.4); SODIUM 141 mEq/L (136-147)
[2017-12-30 13:37] LABS: GLUCOSE 101 mg/dL (70-99)
[2017-12-30 13:40] LABS: SERUM ETHYL ALCOHOL < 10 mg/dL
[2017-12-30 13:41] LABS: CREATININE 1.2 mg/dL (0.6-1.3); GFR ESTIMATE (CALCULATED) 49 mL/min/
[2017-12-30 13:42] LABS: UREA NITROGEN (BUN) 18 mg/dL (9-23)
[2017-12-30 14:14] LABS: APPEARANCE CLEAR ((CLEAR)); BILIRUBIN NEGATIVE; BLOOD NEGATIVE; COLOR YELLOW ((YELLOW)); GLUCOSE (STRIP) NEGATIVE; KETONES NEGATIVE; LEUKOCYTES NEGATIVE; NITRITE NEGATIVE; PROTEIN (STRIP) NEGATIVE; SPECIFIC GRAVITY 1.009 (1.000-1.030); UROBILINOGEN 0.2 MG/DL (0.2-1.0)
[2017-12-30 14:22] LABS: AMPHETAMINE NEGATIVE (500 ng/mL); BARBITURATES PRESUMPTIVE POSITIVE (200 ng/mL); BENZODIAZEPINES NEGATIVE (150 ng/mL); BUPRENORPHINE NEGATIVE (10 ng/mL); COCAINE NEGATIVE (150 ng/mL); METHADONE NEGATIVE (200 ng/mL); METHAMPHETAMINE NEGATIVE (500 ng/mL); OPIATES (MORPHINE) NEGATIVE (100 ng/mL); OXYCODONE NEGATIVE (100 ng/mL); PHENCYCLIDINE NEGATIVE (25 ng/mL); PROPOXYPHENE NEGATIVE (300 ng/mL); THC CANNABINOIDS NEGATIVE (50 ng/mL); TRICYCLIC ANTIDEPRESSANTS PRESUMPTIVE POSITIVE (300 ng/mL)
[2017-12-30 15:58] VITALS: BP 144/75
[2017-12-30 16:01] VITALS: BP 144/75
[2017-12-31 08:11] VITALS: BP 140/63
[2017-12-31] MEDS ORDERED: ERGOCALCIF50000 UNIT PO (09:01)
[2017-12-31] MEDS ORDERED: AVENTYL,PAMELOR25 MG PO (09:02)
[2017-12-31] MEDS ORDERED: PRAZOSIN HCL2 MG (09:02)
[2017-12-31 16:17] VITALS: BP 162/71
[2018-01-01 09:07] VITALS: BP 116/55
[2018-01-01 16:36] VITALS: BP 129/66
[2018-01-02 09:38] VITALS: BP 124/60
[2018-01-02 16:53] VITALS: BP 106/59
[2018-01-03 09:18] VITALS: BP 130/61
[2018-01-03 13:13] VITALS: BP 125/57
[2018-01-03 13:42] LABS: HEMATOCRIT 30.1 % (36.0-46.0); HEMOGLOBIN 9.7 G/DL (11.9-15.5); MCH 27.3 PG (29.0-34.0); MCHC 32.2 G/DL (30.0-36.0); MCV 84.8 FL (83-99); PLATELET COUNT 362 K/uL (156-360); RBC DIS.WIDTH-CV 14.8 % (11.8-14.6); RBC DIS.WIDTH-SD 46.1 % (39-53); RED BLOOD COUNT 3.55 M/uL (3.80-5.20); WHITE BLOOD COUNT 11.1 K/uL (4.1-10.2)
[2018-01-03 13:56] LABS: D-DIMER ELISA < 150.00 ng/mLDDU (<230)
[2018-01-03 14:00] LABS: TROP-I INTERPRETATION NEGATIVE; TROPONIN-I < 0.01 ng/mL (0.0-0.30)
[2018-01-03 14:01] LABS: CHLORIDE 103 MEQ/L (99-109); CREATININE 1.1 MG/DL (0.6-1.3); GFR ESTIMATE (CALCULATED) 55 mL/min/; GLUCOSE 107 mg/dL (70-99); SODIUM 141 MEQ/L (136-147); UREA NITROGEN (BUN) 16 mg/dL (9-23)
[2018-01-03 14:08] LABS: POTASSIUM 3.8 MEQ/L (3.7-5.4)
[2018-01-03 16:37] VITALS: BP 133/62
[2018-01-03 20:34] LABS: TROP-I INTERPRETATION NEGATIVE; TROPONIN-I < 0.01 ng/mL (0.0-0.30)
[2018-01-04 01:05] LABS: TROP-I INTERPRETATION NEGATIVE; TROPONIN-I < 0.01 ng/mL (0.0-0.30)
[2018-01-04 07:58] VITALS: BP 121/73
[2018-01-04 16:17] VITALS: BP 122/67
[2018-01-05 07:39] VITALS: BP 120/77
[2018-01-05] MEDS ORDERED: DIVALPROEX SOD250 MG PO (10:43)
[2018-01-05] MEDS ORDERED: AVENTYL,PAMELOR50 MG PO (10:43)
[2018-01-05] MEDS ORDERED: MIRTAZAPINE30 MG PO (10:43)
== END 2018-01-05 11:18 | disposition home or self-care (01) | DRG 885 ==
LOC: EME 12:51 → 1WEST 13:49 → EDOF 13:49 → ENRESERV 15:13 → 1WEST 15:51
PROVIDERS: Internal Medicine; Nurse Practitioner Family; Psychiatry & Neurology Psychiatry
DX: F25.0 Schizoaffective disorder, bipolar type (principal); F60.3 Borderline personality disorder; R45.851 Suicidal ideations; R07.9 Chest pain, unspecified; G43.909 Migraine, unspecified, not intractable, without status migrainosus; E87.6 Hypokalemia; D50.9 Iron deficiency anemia, unspecified; I10 Essential (primary) hypertension; E11.9 Type 2 diabetes mellitus without complications; E78.5 Hyperlipidemia, unspecified; G40.909 Epilepsy, unspecified, not intractable, without status epilepticus; F41.9 Anxiety disorder, unspecified; K21.9 Gastro-esophageal reflux disease without esophagitis; R20.0 Anesthesia of skin; R20.2 Paresthesia of skin; K58.0 Irritable bowel syndrome with diarrhea; E66.3 Overweight; Z68.32 Body mass index [BMI] 32.0-32.9, adult; Z87.11 Personal history of peptic ulcer disease; Z86.73 Personal history of transient ischemic attack (TIA), and cerebral infarction without residual deficits
CPT/HCPCS: 71045; 73130; 80048; 81003; 82948; 84484; 84999; 85027; 85379; 90839; 93005; 97150 GO; 97165 GO; 99281; 99285; G0480; Q0177

== ENCOUNTER 2018-03-28 19:14 | Observation (INO) | payer OTHER ==
[~2018-03-28] VITALS: Ht 157.5 cm; Wt 75.9 kg
[~2018-03-28 19:14] MED LIST changes: +AVENTYL,PAMELOR25 MG PO; +AVENTYL,PAMELOR50 MG PO; +DIVALPROEX SOD250 MG PO; +ERGOCALCIF50000 UNIT PO; +MIRTAZAPINE30 MG PO; +PRAZOSIN HCL2 MG PO
[2018-03-28 19:50] LABS: HEMATOCRIT 32.7 % (36.0-46.0); HEMOGLOBIN 10.9 G/DL (11.9-15.5); MCHC 33.3 G/DL (30.0-36.0); MCV 81.1 FL (83-99); PLATELET COUNT 414 K/uL (156-360); RBC DIS.WIDTH-CV 13.6 % (11.8-14.6); RBC DIS.WIDTH-SD 39.8 % (39-53); RED BLOOD COUNT 4.03 M/uL (3.80-5.20)
[2018-03-28 20:01] LABS: CHLORIDE 100 mEq/L (99-109); POTASSIUM 2.8 mEq/L (3.7-5.4); SODIUM 141 mEq/L (136-147)
[2018-03-28 20:02] LABS: GLUCOSE 124 mg/dL (70-99)
[2018-03-28 20:06] LABS: CREATININE 1.2 mg/dL (0.6-1.3); GFR ESTIMATE (CALCULATED) 49 mL/min/
[2018-03-28 20:07] LABS: UREA NITROGEN (BUN) 18 mg/dL (9-23)
[2018-03-28 20:53] LABS: TROP-I INTERPRETATION NEGATIVE; TROPONIN-I 0.01 ng/mL (0.0-0.30)
[2018-03-28 21:26] LABS: APPEARANCE CLEAR ((CLEAR)); BILIRUBIN NEGATIVE; BLOOD NEGATIVE; COLOR YELLOW ((YELLOW)); GLUCOSE (STRIP) NEGATIVE; KETONES NEGATIVE; LEUKOCYTES NEGATIVE; NITRITE NEGATIVE; PROTEIN (STRIP) 30; SPECIFIC GRAVITY 1.017 (1.000-1.030); UCUL ADDED? NO; UROBILINOGEN 0.2 MG/DL (0.2-1.0)
[2018-03-28] MEDS ORDERED: MINIPRESS1 MG PO (21:37)
[2018-03-28] MEDS ORDERED: AVENTYL,PAMELOR50 MG OP (21:38)
[2018-03-28] MEDS ORDERED: FIORINAL1 TABLET PO (21:40)
[2018-03-28] MEDS ORDERED: MELATIN3 MG PO (21:40)
[2018-03-28] MEDS ORDERED: L-LYSINE500 M1 PO (21:40)
[2018-03-28] MEDS ORDERED: PROTONIX40 MG PO (21:41)
[2018-03-28] MEDS ORDERED: KLOR-CON M2020 MEQ PO (21:41)
[2018-03-28] MEDS ORDERED: HYDROXYZINE PAM25 MG PO (21:41)
[2018-03-29 00:37] VITALS: BP 133/68
[2018-03-29 01:56] LABS: ACETAMINOPHEN (TYLENOL) < 10 MCG/ML (10-30); HDL CHOLESTEROL 52 MG/DL (Desirable>=50); LDL CHOLESTEROL 102 mg/dL (Desirable<100); NON-HDL CHOLESTEROL 176 mg/dL (Desirable<160); SALICYLATE < 3.0 MG/DL (15-30); SERUM ETHYL ALCOHOL < 10 mg/dL; TOTAL CHOLESTEROL 228 mg/dL (Desirable<200); TRIGLYCERIDES 368 MG/DL (Normal: <150)
[2018-03-29 03:32] VITALS: BP 121/66
[2018-03-29 05:38] LABS: BASOPHIL (%) 0.6 % (0-1); BASOPHIL COUNT 0.1 K/uL (0-0.1); EOSINOPHIL (%) 2.5 % (0-5); EOSINOPHIL COUNT 0.3 K/uL (0-0.3); HEMATOCRIT 29.6 % (36.0-46.0); HEMOGLOBIN 9.7 G/DL (11.9-15.5); IMMATURE GRANULOCYTE (%) 0.3 % (0.0-0.7); LYMPHOCYTE (%) 43.1 % (15-42); LYMPHOCYTE COUNT 5.2 K/uL (1.0-2.8); MCH 26.6 PG (29.0-34.0); MCHC 32.8 G/DL (30.0-36.0); MCV 81.1 FL (83-99); MONOCYTE COUNT 0.6 K/uL (0-0.8); NEUTROPHIL (%) 48.5 % (45-76); NEUTROPHIL COUNT 5.8 K/uL (1.8-6.4); PLATELET COUNT 388 K/uL (156-360); RBC DIS.WIDTH-CV 13.6 % (11.8-14.6); RBC DIS.WIDTH-SD 39.9 % (39-53); RED BLOOD COUNT 3.65 M/uL (3.80-5.20)
[2018-03-29 06:00] LABS: CHLORIDE 101 MEQ/L (99-109); CREATININE 1.1 MG/DL (0.6-1.3); GFR ESTIMATE (CALCULATED) 54 mL/min/; GLUCOSE 122 mg/dL (70-99); SODIUM 140 MEQ/L (136-147); UREA NITROGEN (BUN) 17 mg/dL (9-23)
[2018-03-29 07:37] VITALS: BP 136/66
[2018-03-29 10:56] LABS: HEMOGLOBIN A1c (GLYCOHEMOGLOB) 6.6 % (Below 5.7)
[2018-03-29 11:13] VITALS: BP 116/77
[2018-03-29 16:06] LABS: BENZODIAZEPINES, URINE SCREEN Negative (200 ng/mL)
== END 2018-03-29 14:47 | disposition home or self-care (01) ==
LOC: EME 19:14 → EDOF 23:59 → 4SOUTH 03-29 00:33 → ENPENDDIS 03-29 13:28 → 4SOUTH 03-29 14:47
PROVIDERS: Emergency Medicine; Internal Medicine
PROC: B246ZZZ Ultrasonography of Right and Left Heart (ICD-10-PCS; principal; 2018-03-29)
DX: G43.001 Migraine without aura, not intractable, with status migrainosus (principal); F31.89 Other bipolar disorder; F60.3 Borderline personality disorder; F25.9 Schizoaffective disorder, unspecified; E78.5 Hyperlipidemia, unspecified; I10 Essential (primary) hypertension; E11.9 Type 2 diabetes mellitus without complications; I27.20 Pulmonary hypertension, unspecified; D72.829 Elevated white blood cell count, unspecified; D64.9 Anemia, unspecified; Z87.11 Personal history of peptic ulcer disease; Z86.73 Personal history of transient ischemic attack (TIA), and cerebral infarction without residual deficits; K58.9 Irritable bowel syndrome, unspecified; G40.909 Epilepsy, unspecified, not intractable, without status epilepticus; F44.81 Dissociative identity disorder; F41.9 Anxiety disorder, unspecified; E87.6 Hypokalemia; Z90.49 Acquired absence of other specified parts of digestive tract; Z90.710 Acquired absence of both cervix and uterus; Z80.52 Family history of malignant neoplasm of bladder; Z80.42 Family history of malignant neoplasm of prostate; Z87.19 Personal history of other diseases of the digestive system; Z88.6 Allergy status to analgesic agent
CPT/HCPCS: 70450; 70551; 71046; 73630; 80048; 80061; 80306 90; 81003; 82948; 83036; 84484; 85025; 85027; 92523 GN; 93005; 93306; 93880; 99281; 99285; G0378; G0480; G8978 GP CI; G8979 GP CI; G8980 GP CI; G8987 GO CI; G8988 CI; G8989 GO CI; G9162 GN CH; G9163 GN CH; G9164 GN CH; J1644; J1815